=== PATIENT | male | born 1965 | race Hispanic/Latino ===

== ENCOUNTER 2017-08-04 18:10 | Inpatient (IN) | payer OTHER ==
[2017-08-04 19:10] VITALS: BMI 27.3
[2017-08-04 19:37] LABS: BASO # 0.1 K/uL (0.0-0.2); BASO % 0.8 % (0.0-2.0); EOS # 0.1 K/uL (0.0-0.7); EOS % 1.1 % (0.0-4.0); HEMOGLOBIN 16.4 g/dL (12.0-18.0); LYMPH # 2.2 K/uL (1.0-4.3); MEAN CELL VOLUME 97.2 fL (80.0-94.0); MEAN CORPUSCULAR HEMOGLOBIN 33.2 pg (27.0-31.0); MEAN CORPUSCULAR HGB CONC 34.2 g/dL (33.0-37.0); MEAN PLATELET VOLUME 8.2 fL (7.2-11.7); MONO # 0.6 K/uL (0.0-0.8); NEUT # 3.6 K/uL (1.8-7.0); NEUT % 55.1 % (50.0-75.0); NRBC % 0.1 % (0.0-2.0); RBC 4.93 Mil/uL (4.40-5.90); RED CELL DISTRIBUTION WIDTH 12.9 % (11.5-14.5); WHITE BLOOD COUNT 6.6 K/uL (4.8-10.8)
[2017-08-04 19:53] LABS: ALB/GLOB RATIO 1.2 (1.0-2.1); ALBUMIN 4.6 g/dL (3.5-5.0); ALT/SGPT 81 U/L (21-72); AST/SGOT 97 U/L (17-59); BLOOD UREA NITROGEN 5 mg/dL (9-20); CALCIUM 9.4 mg/dl (8.6-10.4); GFR AFRICAN-AMERICAN > 60; GFR NON-AFRICAN AMERICAN > 60; MAGNESIUM 2.3 mg/dL (1.6-2.3)
--- NOTE | 2017-08-04 19:54 | C.PDOC ---
History Of Present Illness 51 year old male with a PMHx of hypertension, [place], and COPD presents to the emergency room requesting detox from alcohol. Patient reports he went to [facility] yesterday but they do not have detox beds, so he came here today. States he drinks an 18 pack per day, and additionally has consumed 750 ml of vodka daily for the past week. Denies any drug use. Last drink was around 5:30PM this evening. (+) Hallucinations; patient reports he saw a lady with a pineapple on her head earlier today. Also complaining of shakes, nausea, vomiting. Has not eaten in 4 days. At the end of discussion patient admits to having intermittent coughing spells where he cannot breathe and passes out. This happened 3x in the last year. Patient attributes this to post-nasal drip. Time Seen by Provider: 08/04/17 19:08 Chief Complaint (Nursing): Substance Abuse History Per: Patient History/Exam Limitations: no limitations Onset/Duration Of Symptoms: Days Current Symptoms Are (Timing): Still Present Modifying Factor(s): Alcohol Past Medical History Reviewed: Historical Data, Nursing Documentation, Vital Signs Vital Signs: Last Vital Signs Temp 98.0 F 08/04/17 19:22 Pulse 120 H 08/04/17 19:22 Resp 20 08/04/17 19:22 BP 165/96 H 08/04/17 19:22 Pulse Ox 97 08/04/17 20:09 - Medical History PMH: Anxiety, Asthma, Back Problems, COPD, HTN, Hypercholesterolemia Denies: Depression, Chronic Kidney Disease Surgical History: Appendectomy - [facility] Procedures APPLICATION OF SPLINT (01/26/14) CLOSURE SKIN & SUBCUTANEOUS NEC (02/03/15) INJECT/INFUSE NEC (01/26/14) Family History: States: Stroke (patient's father) - Social History Hx Tobacco Use: Yes Hx Alcohol Use: Yes (beer) Hx Substance Use: No - Immunization History Hx Tetanus Toxoid Vaccination: Yes (5 years ago) Hx Influenza Vaccination: Yes Hx Pneumococcal Vaccination: Yes Review Of Systems Except As Marked, All Systems Reviewed And Found Negative. Constitutional: Positive for: Sweats, Other (Shakes). Negative for: Fever, Chills Cardiovascular: Negative for: Chest Pain Respiratory: Positive for: Cough (with post-tussive syncope on occasion). Negative for: Shortness of Breath Gastrointestinal: Positive for: Nausea, Vomiting Psych: Positive for: Other (Hallucinations). Negative for: Suicidal ideation ( or homicidal) Physical Exam - Physical Exam Appears: Non-toxic, No Acute Distress Skin: Normal Color, Warm, Diaphoretic Head: Atraumatic, Normacephalic Eye(s): bilateral: Normal Inspection, PERRL, EOMI Nose: Normal Neck: Normal, Normal ROM Chest: Symmetrical Cardiovascular: Rhythm Regular (w/ tachycardia), Other (Normal S1,S2) Respiratory: Decreased Breath Sounds, Rales (diffuse, bilateral), Wheezing ( diffuse, bilateral) Gastrointestinal/Abdominal: Bowel Sounds (present), Soft, No Tenderness, Distention Back: Normal Inspection, No Vertebral Tenderness Extremity: Normal ROM, Tenderness (to left ankle - due to trauma last week per patient), No Deformity Pulses: Left Dorsalis Pedis: Decreased, Right Dorsalis Pedis: Decreased Neurological/Psych: Oriented x3, Normal Speech, Other (Mild tremors noted) ED Course And Treatment - Laboratory Results Result Diagrams: 08/04/17 19:33 08/04/17 19:33 Lab Interpretation: Abnormal (ETOH 273 H) ECG: Interpreted By Az ECG Rhythm: Sinus Tachycardia ECG Interpretation: Abnormal Rate From EC O2 Sat by Pulse Oximetry: 97 (RA) Pulse Ox Interpretation: Normal - Radiology CXR: Interpreted by Az CXR Interpretation: Yes: No Acute Disease Progress Note: ativan 4 IV. ate sandwich and juice, calm cooperative Reevaluation Time: 22:09 Reassessment Condition: Improved - Physician Consult Information Outcome Of Conversation: 2199: d/w ICU Consult, Dr. Araujo- defers ICU for now , will write benzo routine for Tele Adm. 2215: d/w Dr. Jarocho Lerma- Medicine Chemistry Department Chair- ok to admit. Critical Care Time - Critical Care Note Total Time (in mins): 90 Documented critical care: time excludes all time spent performing seperately billable procedures. Medical Decision Making Medical Decision Making: Time: 19:22 Initial Plan: * EKG * Labs * Ativan 2 mg IM x2 withdrawal/boarderline DT's large volume ETOH abuse Disposition Doctor Will See Patient In The: Hospital Counseled Patient/Family Regarding: Studies Performed, Diagnosis - Disposition Disposition: HOSPITALIZED Disposition Time: 22:11 Condition: GOOD Forms: [facility] (Danish) - Clinical Impression Clinical Impression: Alcohol withdrawal syndrome - Scribe Statement The provider has reviewed the documentation as recorded by the Geoffrey Lee Provider Attestation: All medical record entries made by the Geoffrey were at my direction and personally dictated by me. I have reviewed the chart and agree that the record accurately reflects my personal performance of the history, physical exam, medical decision making, and the department course for this patient. I have also personally directed, reviewed, and agree with the discharge instructions and disposition.
[2017-08-04 21:26] LABS: URINE BACTERIA RARE (<OCC); URINE BILIRUBIN NEGATIVE (NEGATIVE); URINE BLOOD NEGATIVE (NEGATIVE); URINE CLARITY Clear (Clear); URINE COLOR Yellow (YELLOW); URINE GLUCOSE (UA) NORMAL (Normal); URINE HYALINE CAST 0-2 /lpf (0-2); URINE LEUKOCYTE ESTERASE NEG Leu/uL (Negative); URINE NITRATE NEGATIVE (NEGATIVE); URINE PROTEIN NEGATIVE (NEGATIVE); URINE UROBILINOGEN NORMAL mg/dL (0.2-1.0)
[2017-08-04 21:36] LABS: BARBITURATES, UR NEGATIVE (NEGATIVE); BENZODIAZEPINES, UR NEGATIVE (NEGATIVE); OPIATES, UR NEGATIVE (NEGATIVE); PHENCYCLIDINE, UR NEGATIVE (NEGATIVE)
[2017-08-04 21:52] LABS: PROTHROMBIN TIME 11.4 SECONDS (9.7-12.2)
[2017-08-04] MEDS ORDERED: Magnesium Sulfate 1 gm in D5W 1 GM/100 ML BAG IVPB ONE (22:25)
[2017-08-04] MEDS ORDERED: Thiamine 100 mg/ml Inj IV ONE (22:25)
[2017-08-04] MEDS ORDERED: Lactated Ringer's 1,000 ML ONE (23:45)
[2017-08-05] MEDS: Lactated Ringer's 1,000 ML IV SCH ×3 (00:02→18:30)
--- NOTE | 2017-08-05 00:19 | CP.PCM.CON ---
History of Present Illness - History of Present Illness History of Present Illness: 51 M came to hospital for detox for alcohol, patient at time of presentation had severe tremors, and has some confusion, icu eval called for suspicion of DT' s. Patient at time of interview was post iv 2mg ativan, was sitting, alert and oriented, with no tremors, slight elevated BP, maintained pulse, denied any resp complains, fever, sob. C/o left breast pain for few wks like tingling sensation. PMH COPD, cough related syncope, post nasal discharge, htn, pvd PSH none Allergies NKDA Social lives with , works as respiratory assistant, drinks 18 case 12 oz beers and as available vodka, smokes 2ppd, denies illicit drugs Family history not contributory Meds, flonase, hyzzar, spirva, albuterol Review of Systems - Review of Systems All systems: reviewed and no additional remarkable complaints except (HPI) Past Patient History - Infectious Disease Hx of Infectious Diseases: None - Tetanus Immunizations Tetanus Immunization: Unknown - Past Social History Smoking Status: Heavy Smoker > 10 Cigarettes Daily Alcohol: > 2 Drinks/Day (see hpi) Home Situation {Lives}: With Family Domestic Violence: Negative - CARDIAC Hx Hypercholesterolemia: Yes Hx Hypertension: Yes - PULMONARY Hx Asthma: Yes Hx Chronic Obstructive Pulmonary Disease (COPD): Yes - NEUROLOGICAL Hx Neurological Disorder: No - HEENT Hx HEENT Problems: No - RENAL Hx Chronic Kidney Disease: No - ENDOCRINE/METABOLIC Hx Endocrine Disorders: No - HEMATOLOGICAL/ONCOLOGICAL Hx Blood Disorders: No - INTEGUMENTARY Hx Dermatological Problems: No - MUSCULOSKELETAL/RHEUMATOLOGICAL Hx Musculoskeletal Disorders: Yes Hx Degenerative Joint Disease: Yes Hx Falls: Yes - GASTROINTESTINAL Hx Gastrointestinal Disorders: Yes Hx Gastroesophageal Reflux: Yes - GENITOURINARY/GYNECOLOGICAL Hx Genitourinary Disorders: No - PSYCHIATRIC Hx Anxiety: Yes Hx Depression: No Hx Substance Use: No - SURGICAL HISTORY Hx Appendectomy: Yes - ANESTHESIA Hx Anesthesia: Yes Hx Anesthesia Reactions: No Hx Malignant Hyperthermia: No Meds Allergies/Adverse Reactions: Allergies Allergy/AdvReac Type Severity Reaction Status Date / Time No Known Allergies Allergy Verified 08/04/17 19:25 - Medications Medications: Current Medications Aspirin (Aspirin Chewable) 81 mg PO DAILY [facility] Chlordiazepoxide (Librium) 25 mg PO QID [facility] Fluticasone Propionate (Flonase) 1 spr LATASHA RBID [facility] Heparin Sodium (Porcine) (Heparin) 5,000 units SC Q12 [facility] Lactated Ringer's (Lactated Ringer's) 1,000 mls @ 100 mls/hr IV .Q10H [facility] Lorazepam (Ativan) 2 mg IVP Q2H PRN PRN Reason: Symptoms of alcohol withdrawl Losartan Potassium (Cozaar) 100 mg PO DAILY [facility] Multivitamins (Hexavitamin) 1 tab PO DAILY [facility] Nicotine (Nicoderm Cq) 1 patch TD DAILY [facility] Pantoprazole Sodium (Protonix Ec Tab) 40 mg PO DAILY [facility] Thiamine HCl (Vitamin B1 Tab) 100 mg PO DAILY [facility] Tiotropium [place] (Spiriva) 18 mcg INH RQ24 [facility] Tiotropium [place] (Spiriva Inhalation Handihaler Device) 1 inhaler INH ONCE ONE Stop: 08/05/17 08:01 Physical Exam - Additional Findings Additional findings: * HEENT KIERSTEN * Neck Supple * Chest Clear, b/l gynecomastia, left tender * CVS regular, no gallop or rub * Ext no edema * GRADE CHECKER awake oriented x3, no fnd, no tremors * Skin normal turgor * PA soft, nt bs present Results - Vital Signs Recent Vital Signs: Last Vital Signs Temp 98.0 F 08/04/17 19:22 Pulse 120 H 08/04/17 19:22 Resp 20 08/04/17 19:22 BP 165/96 H 08/04/17 19:22 Pulse Ox 97 08/04/17 22:11 - Labs Result Diagrams: 08/04/17 19:33 08/04/17 19:33 Labs: Laboratory Results - last 24 hr 08/04/17 08/04/17 08/04/17 19:33 19:33 21:15 WBC 6.6 RBC 4.93 Hgb 16.4 Hct 48.0 MCV 97.2 H MCH 33.2 H MCHC 34.2 RDW 12.9 Plt Count 240 MPV 8.2 Neut % (Auto) 55.1 Lymph % (Auto) 34.0 [place] % (Auto) 9.0 Eos % (Auto) 1.1 Baso % (Auto) 0.8 Neut # (Auto) 3.6 Lymph # (Auto) 2.2 [place] # (Auto) 0.6 Eos # (Auto) 0.1 Baso # (Auto) 0.1 PT INR APTT Sodium 142 Potassium 4.0 Chloride 99 Carbon Dioxide 24 Anion Gap 23 H BUN 5 L Creatinine 0.7 L Est GFR ( Amer) > 60 Est GFR (Non-Af Amer) > 60 Random Glucose 99 Calcium 9.4 Phosphorus 3.9 Magnesium 2.3 Total Bilirubin 0.7 AST 97 H ALT 81 H Alkaline Phosphatase 84 Total Creatine Kinase 108 Troponin I 0.0290 Total Protein 8.3 Albumin 4.6 Globulin 3.7 Albumin/Globulin Ratio 1.2 Urine Color Yellow Urine Clarity Clear Urine pH 6.0 Ur Specific [place] 1.011 Urine Protein Negative Urine Glucose (UA) Normal Urine Ketones Negative Urine Blood Negative Urine Nitrate Negative Urine Bilirubin Negative Urine Urobilinogen Normal Ur Leukocyte Esterase Neg Urine WBC (Auto) 1 Urine RBC (Auto) < 1 Urine Bacteria Rare Hyaline Casts 0-2 Urine Opiates Screen Urine Methadone Screen Ur Barbiturates Screen Ur Phencyclidine Scrn Ur Amphetamines Screen U Benzodiazepines Scrn U Oth Cocaine Metabols U Cannabinoids Screen Alcohol, Quantitative 273 H 08/04/17 08/04/17 21:15 21:39 WBC RBC Hgb Hct MCV MCH MCHC RDW Plt Count MPV Neut % (Auto) Lymph % (Auto) [place] % (Auto) Eos % (Auto) Baso % (Auto) Neut # (Auto) Lymph # (Auto) [place] # (Auto) Eos # (Auto) Baso # (Auto) PT 11.4 INR 1.0 APTT 31 Sodium Potassium Chloride Carbon Dioxide Anion Gap BUN Creatinine Est GFR ( Amer) Est GFR (Non-Af Amer) Random Glucose Calcium Phosphorus Magnesium Total Bilirubin AST ALT Alkaline Phosphatase Total Creatine Kinase Troponin I Total Protein Albumin Globulin Albumin/Globulin Ratio Urine Color Urine Clarity Urine pH Ur Specific [place] Urine Protein Urine Glucose (UA) Urine Ketones Urine Blood Urine Nitrate Urine Bilirubin Urine Urobilinogen Ur Leukocyte Esterase Urine WBC (Auto) Urine RBC (Auto) Urine Bacteria Hyaline Casts Urine Opiates Screen Negative Urine Methadone Screen Negative Ur Barbiturates Screen Negative Ur Phencyclidine Scrn Negative Ur Amphetamines Screen Negative U Benzodiazepines Scrn Negative U Oth Cocaine Metabols Negative U Cannabinoids Screen Negative Alcohol, Quantitative Assessment & Plan - Assessment and Plan (Free Text) Assessment: * Early alcohol withdrawal, with heavy consumption will need high amounts of bzd then slow taper once withdrawal absolutely controlled * Tobacco abuse * H/o htn, pvd, focal fatty liver, cough syncope * b/l gynecomastia, tender left side. * Plan: * Patient was in early withdrawal but not in DT's, does not need monitoring in icu * BZD, scheduled and prn, thiamine, fa, mvt, ivf, electrolytes * Left breast and hepatic usg * GI/DVT prophylaxis, home meds * nicoderm * See orders for detail * d/w pmd.
[2017-08-05 07:37] LABS: BASO % 0.5 % (0.0-2.0); EOS # 0.1 K/uL (0.0-0.7); EOS % 1.8 % (0.0-4.0); HEMOGLOBIN 15.6 g/dL (12.0-18.0); LYMPH # 1.5 K/uL (1.0-4.3); LYMPH % 22.2 % (20.0-40.0); MEAN CELL VOLUME 96.7 fL (80.0-94.0); MEAN CORPUSCULAR HEMOGLOBIN 33.8 pg (27.0-31.0); MEAN PLATELET VOLUME 8.3 fL (7.2-11.7); MONO # 0.5 K/uL (0.0-0.8); MONO % 7.6 % (0.0-10.0); NEUT # 4.5 K/uL (1.8-7.0); NEUT % 67.9 % (50.0-75.0); NRBC % 0.2 % (0.0-2.0); RBC 4.62 Mil/uL (4.40-5.90); RED CELL DISTRIBUTION WIDTH 12.8 % (11.5-14.5); WHITE BLOOD COUNT 6.6 K/uL (4.8-10.8)
[2017-08-05] MEDS ORDERED: Tiotropium 18 mcg Cap For Inhalation INH SCH (08:00)
[2017-08-05 08:08] LABS: ALB/GLOB RATIO 1.2 (1.0-2.1); ALT/SGPT 74 U/L (21-72); AST/SGOT 80 U/L (17-59); BLOOD UREA NITROGEN 8 mg/dL (9-20); GFR AFRICAN-AMERICAN > 60; GFR NON-AFRICAN AMERICAN > 60; MAGNESIUM 2.2 mg/dL (1.6-2.3)
[2017-08-05] MEDS ORDERED: Pantoprazole 40 mg EC Tab PO SCH (10:00)
[2017-08-05] MEDS ORDERED: Multiple Vitamins Tab PO SCH (10:00)
[2017-08-05] MEDS ORDERED: Fluticasone Nasal 50 mcg/Spray NAS SCH (10:00)
--- NOTE | 2017-08-05 10:08 | RAD ---
Chest x-ray single frontal view History: Admission film. Comparison: None available. Findings: No focal infiltrate or effusion. Small nodular density in the lateral aspect of the right mid lung zone likely represents vessel on end. Additional small nodular density at the left lung apex likely represents move granulomatous change. Heart size within normal limits. Impression: No focal infiltrate or effusion.
--- NOTE | 2017-08-05 16:01 | US ---
HISTORY: old male with left breast pain. No family history of breast cancer. No personal history of breast cancer. TECHNIQUE: Sonographic evaluation of both breast was performed. FINDINGS: RIGHT BREAST: No solid or cystic masses identified. No axillary lymphadenopathy identified. LEFT BREAST: Minimal retroareolar ductal ectasia -compatible with asymmetrical gynecomastia Three o'clock 5 cm from the nipple- a morphologically normal appearing lymph node measuring 1.5 x 0.4 x 1.0 cm in size is noted. No axillary lymphadenopathy identified. IMPRESSION: Asymmetrical left gynecomastia -minimal. Incidentally noted is a benign appearing left intramammary lymph node. No suspicious sonographic masses noted. No abscess noted BIRADS: BIRADS 2 Benign finding male patient
[2017-08-05 16:05] VITALS: O2SAT 95
--- NOTE | 2017-08-05 16:54 | US ---
HISTORY: heterogenous fatty liver in prior ct - no prior CT reports apparent at this time in our PAC system COMPARISON: None. TECHNIQUE: Sonographic evaluation of the right upper quadrant of the abdomen. FINDINGS: LIVER: Measures 20 cm in length. -enlarged Heterogeneously increased echogenicity of the liver parenchyma. Possible fatty sparing left lateral to the gallbladder. No intrahepatic bile duct dilatation. GALLBLADDER: . Unremarkable. No gallstones. No gallbladder wall thickening or pericholecystic fluid. No Looney sign. COMMON BILE DUCT: Measures 4 mm. No stones. No dilatation. PANCREAS: Not well seen-due to obscuring bowel gas. RIGHT KIDNEY: Measures 12 cm in length. Normal echogenicity. No calculus, mass, or hydronephrosis. AORTA: No aneurysmal dilatation. IVC: Unremarkable. OTHER FINDINGS: None . IMPRESSION: Hepatomegaly with diffuse increased echogenicity - hepatic steatosis inferred. The small 6 mm hypo echogenic focus left lateral to the gallbladder is compatible with fatty sparing. Recommend comparison with any outside prior CT studies to ensure stability. No gallbladder pathology. Limited evaluation of the pancreas due to obscuring bowel gas.
--- NOTE | 2017-08-05 17:46 | CP.PCM.HP ---
Past Patient History - Infectious Disease Hx of Infectious Diseases: None - Tetanus Immunizations Tetanus Immunization: Unknown - Past Medical History & Family History Past Medical History?: Yes - Past Social History Smoking Status: Heavy Smoker > 10 Cigarettes Daily - CARDIAC Hx Cardiac Disorders: Yes Hx Hypercholesterolemia: Yes Hx Hypertension: Yes - PULMONARY Hx Respiratory Disorders: Yes Hx Asthma: Yes Hx Chronic Obstructive Pulmonary Disease (COPD): Yes - NEUROLOGICAL Hx Neurological Disorder: No - HEENT Hx HEENT Problems: No - RENAL Hx Chronic Kidney Disease: No - ENDOCRINE/METABOLIC Hx Endocrine Disorders: No - HEMATOLOGICAL/ONCOLOGICAL Hx Blood Disorders: No - INTEGUMENTARY Hx Dermatological Problems: No - MUSCULOSKELETAL/RHEUMATOLOGICAL Hx Musculoskeletal Disorders: Yes Hx Degenerative Joint Disease: Yes Hx Falls: Yes - GASTROINTESTINAL Hx Gastrointestinal Disorders: Yes Hx Gastroesophageal Reflux: Yes - GENITOURINARY/GYNECOLOGICAL Hx Genitourinary Disorders: No - PSYCHIATRIC Hx Substance Use: No - SURGICAL HISTORY Hx Surgeries: Yes Hx Appendectomy: Yes - ANESTHESIA Hx Anesthesia: Yes Hx Anesthesia Reactions: No Hx Malignant Hyperthermia: No Has any member of the family had a problem w/ anesthesia?: No Meds Allergies/Adverse Reactions: Allergies Allergy/AdvReac Type Severity Reaction Status Date / Time No Known Allergies Allergy Verified 08/04/17 19:25 Physical Exam - Constitutional Appears: Well - Head Exam Head Exam: ATRAUMATIC, NORMAL INSPECTION, NORMOCEPHALIC - Eye Exam Eye Exam: EOMI, Normal appearance, PERRL Pupil Exam: NORMAL ACCOMODATION, PERRL - ENT Exam ENT Exam: Mucous Membranes Moist, Normal Exam - Neck Exam Neck exam: Positive for: Normal Inspection - Respiratory Exam Respiratory Exam: Decreased Breath Sounds - Cardiovascular Exam Cardiovascular Exam: REGULAR RHYTHM, +S1, +S2 - GI/Abdominal Exam GI & Abdominal Exam: Diminished Bowel Sounds, Soft - Rectal Exam Rectal Exam: Deferred Results - Vital Signs Recent Vital Signs: Last Vital Signs Temp 97.9 F 08/05/17 15:00 Pulse 98 H 08/05/17 15:00 Resp 21 08/05/17 15:00 BP 183/93 H 08/05/17 15:00 Pulse Ox 95 08/05/17 15:00 - Labs Result Diagrams: 08/05/17 07:16 08/05/17 07:16 Labs: Laboratory Results - last 24 hr 08/04/17 08/04/17 08/04/17 19:33 19:33 21:15 WBC 6.6 RBC 4.93 Hgb 16.4 Hct 48.0 MCV 97.2 H MCH 33.2 H MCHC 34.2 RDW 12.9 Plt Count 240 MPV 8.2 Neut % (Auto) 55.1 Lymph % (Auto) 34.0 [place] % (Auto) 9.0 Eos % (Auto) 1.1 Baso % (Auto) 0.8 Neut # (Auto) 3.6 Lymph # (Auto) 2.2 [place] # (Auto) 0.6 Eos # (Auto) 0.1 Baso # (Auto) 0.1 PT INR APTT Sodium 142 Potassium 4.0 Chloride 99 Carbon Dioxide 24 Anion Gap 23 H BUN 5 L Creatinine 0.7 L Est GFR ( Amer) > 60 Est GFR (Non-Af Amer) > 60 POC Glucose (mg/dL) Random Glucose 99 Calcium 9.4 Phosphorus 3.9 Magnesium 2.3 Total Bilirubin 0.7 AST 97 H ALT 81 H Alkaline Phosphatase 84 Total Creatine Kinase 108 Troponin I 0.0290 Total Protein 8.3 Albumin 4.6 Globulin 3.7 Albumin/Globulin Ratio 1.2 Urine Color Yellow Urine Clarity Clear Urine pH 6.0 Ur Specific [place] 1.011 Urine Protein Negative Urine Glucose (UA) Normal Urine Ketones Negative Urine Blood Negative Urine Nitrate Negative Urine Bilirubin Negative Urine Urobilinogen Normal Ur Leukocyte Esterase Neg Urine WBC (Auto) 1 Urine RBC (Auto) < 1 Urine Bacteria Rare Hyaline Casts 0-2 Urine Opiates Screen Urine Methadone Screen Ur Barbiturates Screen Ur Phencyclidine Scrn Ur Amphetamines Screen U Benzodiazepines Scrn U Oth Cocaine Metabols U Cannabinoids Screen Alcohol, Quantitative 273 H 08/04/17 08/04/17 08/05/17 21:15 21:39 07:16 WBC 6.6 RBC 4.62 Hgb 15.6 Hct 44.7 MCV 96.7 H MCH 33.8 H MCHC 35.0 RDW 12.8 Plt Count 183 MPV 8.3 Neut % (Auto) 67.9 Lymph % (Auto) 22.2 [place] % (Auto) 7.6 Eos % (Auto) 1.8 Baso % (Auto) 0.5 Neut # (Auto) 4.5 Lymph # (Auto) 1.5 [place] # (Auto) 0.5 Eos # (Auto) 0.1 Baso # (Auto) 0.0 PT 11.4 INR 1.0 APTT 31 Sodium Potassium Chloride Carbon Dioxide Anion Gap BUN Creatinine Est GFR ( Amer) Est GFR (Non-Af Amer) POC Glucose (mg/dL) Random Glucose Calcium Phosphorus Magnesium Total Bilirubin AST ALT Alkaline Phosphatase Total Creatine Kinase Troponin I Total Protein Albumin Globulin Albumin/Globulin Ratio Urine Color Urine Clarity Urine pH Ur Specific [place] Urine Protein Urine Glucose (UA) Urine Ketones Urine Blood Urine Nitrate Urine Bilirubin Urine Urobilinogen Ur Leukocyte Esterase Urine WBC (Auto) Urine RBC (Auto) Urine Bacteria Hyaline Casts Urine Opiates Screen Negative Urine Methadone Screen Negative Ur Barbiturates Screen Negative Ur Phencyclidine Scrn Negative Ur Amphetamines Screen Negative U Benzodiazepines Scrn Negative U Oth Cocaine Metabols Negative U Cannabinoids Screen Negative Alcohol, Quantitative 08/05/17 08/05/17 07:16 17:17 WBC RBC Hgb Hct MCV MCH MCHC RDW Plt Count MPV Neut % (Auto) Lymph % (Auto) [place] % (Auto) Eos % (Auto) Baso % (Auto) Neut # (Auto) Lymph # (Auto) [place] # (Auto) Eos # (Auto) Baso # (Auto) PT INR APTT Sodium 138 Potassium 3.9 Chloride 100 Carbon Dioxide 28 Anion Gap 14 BUN 8 L Creatinine 0.8 Est GFR ( Amer) > 60 Est GFR (Non-Af Amer) > 60 POC Glucose (mg/dL) 89 Random Glucose 101 Calcium 9.0 Phosphorus 3.6 Magnesium 2.2 Total Bilirubin 1.0 AST 80 H ALT 74 H Alkaline Phosphatase 82 Total Creatine Kinase Troponin I Total Protein 7.2 Albumin 4.0 Globulin 3.2 Albumin/Globulin Ratio 1.2 Urine Color Urine Clarity Urine pH Ur Specific [place] Urine Protein Urine Glucose (UA) Urine Ketones Urine Blood Urine Nitrate Urine Bilirubin Urine Urobilinogen Ur Leukocyte Esterase Urine WBC (Auto) Urine RBC (Auto) Urine Bacteria Hyaline Casts Urine Opiates Screen Urine Methadone Screen Ur Barbiturates Screen Ur Phencyclidine Scrn Ur Amphetamines Screen U Benzodiazepines Scrn U Oth Cocaine Metabols U Cannabinoids Screen Alcohol, Quantitative
[2017-08-06 00:25] VITALS: BP 197/98; RESP 20; TEMP 97.4
[2017-08-06 04:35] VITALS: PULSE 81
--- NOTE | 2017-08-07 22:22 | CARD ---
APPROVED REPORT EKG Measurement Heart [id number] <Conclusion> Sinus tachycardia with occasional premature ventricular complexes Left axis deviation Abnormal ECG
== END 2017-08-06 03:30 | disposition left against medical advice (07) | DRG 749 ==
LOC: C.ER 18:10 → C.9E 22:07 → C.5S 08-05 12:58
PROVIDERS: ADMIT Internal Medicine Nephrology; ATTEND Internal Medicine Nephrology
DX: F10.239 Alcohol dependence with withdrawal, unspecified (principal); I63.9 Cerebral infarction, unspecified; J44.9 Chronic obstructive pulmonary disease, unspecified; N64.4 Mastodynia; I73.9 Peripheral vascular disease, unspecified; I10 Essential (primary) hypertension; R55 Syncope and collapse; F17.210 Nicotine dependence, cigarettes, uncomplicated; E78.00 Pure hypercholesterolemia, unspecified; K21.9 Gastro-esophageal reflux disease without esophagitis; K76.0 Fatty (change of) liver, not elsewhere classified; Z90.49 Acquired absence of other specified parts of digestive tract